=== PATIENT | male | born 1980 | race American Indian/Alaskan Native ===

== ENCOUNTER 2019-11-10 11:37 | Emergency (ER) | payer SELFPAY ==
[2019-11-10] MEDS ORDERED: AMOXICILLIN 500 MG CAP PO ONE (12:36)
[2019-11-10] MEDS ORDERED: cloNIDine 0.2 MG TAB PO ONE (12:36)
[2019-11-10] MEDS ORDERED: IBUPROFEN 800 MG TAB PO ONE (12:37)
--- NOTE | 2019-11-10 14:16 | Emergency Department Report ---
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 Patient states that he gets frequent headaches sometimes but no headache today. Patient also states that he has been having some dental pain for the past couple of days and thinks he has an infection in his tooth. He denies fev er/chills/shortness of breath/chest pain/headache/blurry vision/cough or any other symptoms. - ROS Review of Systems: As noted in HPI - Exam Vital Signs: Vital Signs 11/10/19 11/10/19 11:46 12:46 Temperature 98.1 F Pulse Rate 73 Respiratory 14 18 Rate Blood Pressure 181/106 O2 Sat by Pulse 98 Oximetry Physical Exam: GENERAL: Alert and oriented x3, no apparent distress, Normal Gait, atraumatic. HEAD: Head is normocephalic and a-traumatic. EYES: Extra ocular muscles are intact. Pupils are equal, round, and reactive to light and accommodation. MOUTH:Mouth is well hydrated and without lesions. Tonsils nonerythematous or swollen, Uvula midline, Tongue not elevated. Mucous membranes are moist. Posterior pharynx clear, no exudate or lesions. Patent airways. NECK: Supple. Non edematous, No carotid bruits. No lymphadenopathy or thyromegaly. No C-spine tenderness LUNGS: Symetrical with respiration, No wheezing, no rales or crackles, CTAB. HEART: S1, S2 present, regular rate and rhythm without murmur, no rubs, no gallops. Non tender to palpation NEUROLOGIC: The patient is cooperative with no focal neurologic deficits. MSE screening note: Focused history and physical exam performed. Due to findings the following was ordered: ED Medical Decision Making - Medical Decision Making This 39-year-old male presented for e uncontrolled blood pressure and dental pain. Patient was given clonidine in the ED for blood pressure reduced. Discussed with patient need to follow-up with her primary care physician for blood pressure management and need to follow-up with dentist for dental caries. Patient's blood pressure reduced prior to discharge. Vital signs are normal patient is in no acute distress. Patient understands instructions to follow-up in the next 2 to 3 days. ED Disposition for MSE Clinical Impression: Uncontrolled hypertension, Pain due to dental caries Disposition: TO HOME OR SELFCARE Is pt being admited?: No Does the pt Need Aspirin: No Condition: Stable Instructions: Dental Caries (ED), Hypertension (ED) Additional Instructions: Make sure to follow up with the primary care physician as discussed for management of your hypertension. Follow-up with the dental clinic as referred. Take all your medications as you've been prescribed. Take Motrin as needed for pain. If you have any worsening symptoms or develop new symptoms please return to ED immediately. Prescriptions: amLODIPine 10 mg PO DAILY #40 tab Amoxicillin [Trimox CAP] 500 mg PO BID #20 capsule Referrals: PRIMARY CARE, [Primary Care Provider] - 3-5 Days [facility] [Outside] - 3-5 Days [facility] [Outside] - 3-5 Days [facility] [Outside] - 3-5 Days [facility] [Outside] - 3-5 Days Forms: Work/School Release Form(ED) Time of Disposition: 14:36
== END 2019-11-10 14:51 | disposition home or self-care (01) ==
LOC: ED 11:37
DX: I10 Essential (primary) hypertension (principal); K02.9 Dental caries, unspecified
CPT/HCPCS: 99282